=== PATIENT | male | born 1970 | race Caucasian/White ===

== ENCOUNTER 2016-06-07 23:45 | Emergency (ER) | payer MEDICARE, OTHER ==
[2016-06-08 01:04] LABS: HEMOGLOBIN 13.1 gm/dl (14.0-17.5); RED BLOOD COUNT 4.2 M/UL (4.20-5.50); WHITE BLOOD COUNT 4.8 K/UL (4.5-11.0)
[2016-06-08 01:22] LABS: BUN/CREATININE RATIO 9 (0-10)
== END 2016-06-08 03:54 | disposition home or self-care (01) ==
LOC: ER1 23:45
PROVIDERS: Physician Assistant
DX: R10.11 Right upper quadrant pain (principal)
CPT/HCPCS: 36415; 80053; 81001; 83690; 84484; 85025; 93005; 99284

== ENCOUNTER 2016-06-26 20:47 | Emergency (ER) | payer MEDICARE, OTHER ==
[2016-06-26 22:50] LABS: HEMOGLOBIN 14.2 gm/dl (14.0-17.5); RED BLOOD COUNT 4.51 M/UL (4.20-5.50)
[2016-06-26 23:16] LABS: BUN/CREATININE RATIO 14 (0-10)
== END 2016-06-27 00:35 | disposition home or self-care (01) ==
LOC: ER1 20:47
PROVIDERS: Specialist/Technologist Athletic Trainer
DX: R07.89 Other chest pain (principal); R10.13 Epigastric pain; Z88.8 Allergy status to other drugs, medicaments and biological substances
CPT/HCPCS: 36415; 80053; 82550; 82553; 83690; 83874; 84484; 85025; 93005; 99285

== ENCOUNTER → 2016-07-02 | Outpatient (CLI) | payer MEDICARE, OTHER | LOC: RAD 14:12 | DX: K59.09 Other constipation (principal); E03.9 Hypothyroidism, unspecified; F79 Unspecified intellectual disabilities; R35.0 Frequency of micturition; E78.5 Hyperlipidemia, unspecified; F63.81 Intermittent explosive disorder | CPT/HCPCS: 74022 ==

== ENCOUNTER 2016-08-25 10:24 | Emergency (ER) | payer MEDICARE, OTHER ==
[2016-08-25 11:36] LABS: HEMOGLOBIN 13.2 gm/dl (14.0-17.5); RED BLOOD COUNT 4.42 M/UL (4.20-5.50); WHITE BLOOD COUNT 4.1 K/UL (4.5-11.0)
[2016-08-25 11:47] LABS: BUN/CREATININE RATIO 13 (0-10)
== END 2016-08-25 14:11 | disposition home or self-care (01) ==
LOC: ER1 10:24
PROVIDERS: Family Medicine
DX: R07.9 Chest pain, unspecified (principal); Z79.899 Other long term (current) drug therapy; Z88.8 Allergy status to other drugs, medicaments and biological substances
CPT/HCPCS: 36415; 71020; 80053; 82550; 82553; 83874; 84484; 85025; 93005; 99285

== ENCOUNTER 2016-08-31 10:29 | Emergency (ER) | payer MEDICARE, OTHER | END 2016-08-31 14:54 | disposition home or self-care (01) | LOC: ER1 10:29 | DX: S00.83XA Contusion of other part of head, initial encounter (principal); S30.92XA Unspecified superficial injury of abdominal wall, initial encounter; E03.9 Hypothyroidism, unspecified; F63.81 Intermittent explosive disorder; Z88.8 Allergy status to other drugs, medicaments and biological substances; Y04.2XXA Assault by strike against or bumped into by another person, initial encounter | CPT/HCPCS: 70450; 70486; 87070; 87205; 99284 ==

== ENCOUNTER → 2021-02-20 | Outpatient (CLI) | payer MEDICARE, OTHER ==
[~2021-02-20] MED LIST: ADULT GLYCERIN1 EACH PR; AMITIZA24 MCG PO; AMMONIUM LACTA140 GM TP; ASPIRIN CHEWABL81 MG PO; CITRATE OF MAG296 ML PO; COLACE 100MG C100 MG PO; CYMBALTA60 MG PO; DEPAKOTE ER500 MG PO; DULCOLAX5 MG PO; FLOMAX0.4 MG PO; IBUPROFEN400 MG PO; LIPITOR TAB 2020 MG PO; MIRALAX17 GM PO; PRILOSEC OTC20 MG PO; SEROQUEL300 MG PO; SYNTHROID100 MCG PO; TRICOR145 MG PO; VITAMIN B-121000 MCG SL; VITAMIN D 40400 UNIT PO
[2021-02-20 11:14] LABS: RED BLOOD COUNT 4.73 M/UL (4.20-5.50); WHITE BLOOD COUNT 3.8 K/UL (4.5-11.0)
[2021-02-20 11:36] LABS: BUN/CREATININE RATIO 20 (0-10)
[2021-02-21 10:13] LABS: CREATININE, URINE 197.6 mg/dL (Not Estab.)
== END ==
LOC: LAB 10:32
PROVIDERS: Nurse Practitioner Primary Care
DX: E03.9 Hypothyroidism, unspecified (principal); K59.00 Constipation, unspecified; D64.9 Anemia, unspecified; E11.9 Type 2 diabetes mellitus without complications; E78.5 Hyperlipidemia, unspecified; K59.09 Other constipation; R53.1 Weakness
CPT/HCPCS: 36415; 80053; 80061; 82043; 82570; 84443; 85025